=== PATIENT | female | born 1975 ===

== ENCOUNTER 2021-04-02 09:42 | Emergency (ER) | payer OTHER ==
[2021-04-02 09:54] VITALS: BP 132/86; PULSE 78; TEMP 98; BMI 28.1
== END 2021-04-02 11:07 | disposition home or self-care (01) ==
LOC: JERFT 09:42
DX: T44.5X1A Poisoning by predominantly beta-adrenoreceptor agonists, accidental (unintentional), initial encounter (principal)
CPT/HCPCS: 99281-25